=== PATIENT | female | born 1980 ===

== ENCOUNTER 2023-02-06 08:32 | Outpatient (CLI) | payer OTHER | END 2023-02-06 08:37 | disposition home or self-care (01) | LOC: SONOGRAMA 08:32 | PROVIDERS: ATTEND Pathology Anatomic Pathology & Clinical Pathology | DX: D34 Benign neoplasm of thyroid gland (principal); E06.3 Autoimmune thyroiditis; E04.9 Nontoxic goiter, unspecified ==